=== PATIENT | female | born 1950 | race Caucasian/White ===

== ENCOUNTER → 2017-08-18 | Outpatient (CLI) | payer MEDICARE, BC ==
[~2017-08-18] MED LIST: KEFLEX 500MG.500 MG PO; NIACIN PO; [UNRECOGNIZED DRUG - OTHER] PO
[2017-08-18 13:22] LABS: BUN 12 mg/dL (7-18); GFR (ESTIMATED) 84 ML/MIN (59-)
== END ==
LOC: LAB 10:42
PROVIDERS: Physician Assistant
DX: E78.2 Mixed hyperlipidemia (principal); Z13.29 Encounter for screening for other suspected endocrine disorder

== ENCOUNTER → 2017-08-26 | Outpatient (CLI) | payer MEDICARE, BC | LOC: LAB 17:06 | DX: M85.89 Other specified disorders of bone density and structure, multiple sites (principal); E78.5 Hyperlipidemia, unspecified ==